=== PATIENT | female | born 1990 | race Caucasian/White ===

== ENCOUNTER 2019-01-02 13:39 | Outpatient (CLI) | payer MEDICAID, SELFPAY ==
[2019-01-02 13:50] VITALS: BP 120/71; PULSE 94; RESP 20; TEMP 36.9; O2SAT 95; BMI 26.2
[2019-01-02 14:00] VITALS: BMI 26.2
[2019-01-02 14:12] LABS: Microscopic, Urine URINE MICROSCOPIC (MICROSCOPIC)
[2019-01-02 14:19] LABS: Appearance,Urine CLEAR (Clear); Bilirubin,Urine Negative (Negative); Blood, Urine Negative (Negative); Color,Urine YELLOW (Yellow); Glucose,Urine (UA) Negative (Negative); Ketones,Urine Negative (Negative); Leukocyte Esterase,Urine Negative (Negative); Nitrate,Urine Negative (Negative); PH,Urine 8.5 (5.0-8.5); Protein,Urine Negative (Negative); Specific Gravity, Urine 1.015 (1.005-1.030); Urobilinogen,Urine 0.2 EU/dl (0.2)
[2019-01-02 14:32] LABS: Amphetamine/Metha Screen,Urine Negative ng/mL (<1000); Barbiturates Screen,Urine Negative ng/mL (<200); Benzodiazepines Screen,Urine Negative ng/mL (<200); Cannabinoid Screen,Urine Positive ng/mL (<50); Cocaine Screen,Urine Negative ng/mL (<300); Methadone Screen,Urine Negative ng/mL (<300); Opiate Screen,Urine Negative ng/mL (<300); Phencyclidine Screen,Urine Negative ng/mL (<25)
[2019-01-02 14:41] LABS: Bacteria,Urine Trace /lpf; WBC,Urine Occasional #/hpf (0-3)
[2019-01-02 15:12] LABS: Hematocrit 28.4 % (37.0-47.0); Hemoglobin 8.9 g/dL (12.2-16.2)
== END 2019-01-02 15:40 | disposition home or self-care (01) ==
LOC: OBOUT 13:45 → OB 13:45
PROVIDERS: PCP Family Medicine; Visit Provider Obstetrics & Gynecology
DX: O21.9 Vomiting of pregnancy, unspecified (principal); Z3A.30 30 weeks gestation of pregnancy
CPT/HCPCS: 36415; 59025; 80305; 81001; 85014; 85018; 96360; 96372

== ENCOUNTER 2021-01-19 03:43 | Emergency (ER) | payer MEDICAID, SELFPAY ==
[2021-01-19 04:00] VITALS: BP 130/60; PULSE 102; RESP 20; TEMP 36.8; O2SAT 100; BMI 22.8
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
[2021-01-19 04:20] LABS: Basophils # 0.1 K/mm3 (0-0.2); Basophils % 0.5 % (0.1-2.0); Eosinophils # 0.1 K/mm3 (0.0-0.4); Eosinophils % 0.4 % (0.1-12.0); Hematocrit 38.3 % (37.0-47.0); Hemoglobin 11.3 g/dL (12.2-16.2); Lymphocytes # 2.2 K/mm3 (0.7-4.5); Mean Corpuscular HGB Conc 29.6 g/dL (31.8-35.4); Mean Corpuscular Hemoglobin 22.4 pg (27.0-31.2); Mean Corpuscular Volume 75.8 fl (81-99); Mean Platelet Volume 7.4 fl (7.4-10.4); Monocytes # 0.8 K/mm3 (0.1-1.0); Monocytes % 6.4 % (1.7-9.3); Neutrophils # 8.9 K/mm3 (1.8-7.8); Neutrophils % 74.7 % (37.0-80.0); Platelet Count 453 K/mm3 (142-424); Red Blood Count 5.05 M/mm3 (4.20-5.40); Red Cell Distribution Width 17.1 % (11.5-17.5); White Blood Count 11.9 K/mm3 (4.8-10.8)
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
[2021-01-19 04:24] LABS: Alanine Aminotransferase 29 U/L (12-78); Albumin Level 4.9 g/dl (3.5-5.0); Albumin/Globulin Ratio 1.3 (1.1-1.8); Alkaline Phosphatase 108 U/L (38-126); Anion Gap 14.3 mEq/L (5-15); Aspartate Amino Transferase 54 U/L (14-36); Bilirubin,Total 0.2 mg/dl (0.2-1.3); Blood Urea Nitrogen 10 mg/dl (7-17); Calcium 9.5 mg/dl (8.4-10.2); Carbon Dioxide 26 mmol/L (22.0-30.0); Chloride 109 mmol/L (98-107); Creatinine Clearance Estimated 125 mL/min (50-200); Estimated Glomerular Filt Rate 119 ml/min (>60); GFR (African American) 144 ML/MIN (>60); Globulin 3.9 g/dL (1.3-3.2); Glucose 123 mg/dl (74-100); Potassium 4.3 mmoL/L (3.5-5.1); Sodium 145 mmol/L (136-145); Total Protein,Serum 8.8 g/dl (6.3-8.2)
[2021-01-19 04:29] LABS: C-Reactive Protein 2.2 mg/L (0-4)
[2021-01-19 04:30] LABS: HCG Qualitative, Serum Negative (Negative)
[2021-01-19 04:44] LABS: Erythrocyte Sedimentation Rate 13 mm/hr (0-20); Procalcitonin < 0.030 ng/mL (0.0-2.0)
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
[2021-01-19 05:45] VITALS: BP 122/77; PULSE 78; RESP 17; TEMP 36.8; O2SAT 99
== END 2021-01-19 05:49 | disposition home or self-care (01) ==
PROVIDERS: Emergency Provider Emergency Medicine; PCP Family Medicine
DX: S42.022A Displaced fracture of shaft of left clavicle, initial encounter for closed fracture (principal); S16.1XXA Strain of muscle, fascia and tendon at neck level, initial encounter; V49.3XXA Car occupant (driver) (passenger) injured in unspecified nontraffic accident, initial encounter; Y92.488 Other paved roadways as the place of occurrence of the external cause; Z88.0 Allergy status to penicillin
CPT/HCPCS: 70450; 71045; 71260; 72125; 72170; 73030; 80053; 84145; 84703; 85025; 85651; 86140; 96365; 96375; 99283; Q9967

== ENCOUNTER 2021-03-05 23:15 | Emergency (ER) | payer MEDICAID, SELFPAY ==
[2021-03-05 23:17] VITALS: BP 134/75; PULSE 98; RESP 16; TEMP 36.7; O2SAT 97; BMI 26.5
--- NOTE | 2021-03-05 23:59 | PC.NURSE ---
This Rn spoke with Nimco at [facility] for Vanc IV dosing of 1250mg once
--- NOTE | 2021-03-06 00:03 | HMH.EDGENADL ---
ED Disposition Clinical Impression: SIRS (systemic inflammatory response syndrome) Cellulitis Qualifiers: Site of cellulitis: other site Qualified Code(s): L03.818 - Cellulitis of other sites Disposition: Home, Self-Care Condition on Discharge: Good Instructions: DI for Cellulitis -- Adult Additional Instructions: use meds and see ortho on sunday for follow up Prescriptions: cephALEXin [cephALEXin 500mg capsule*] 500 mg PO TID #30 cap Transmission Status: Pending to [id number] clindamycin HCL [Clindamycin HCl] 300 mg PO TID #30 cap Transmission Status: Pending to [id number] Referrals: Thalia Dumont [Primary Care Provider] - - Critical Care Critical Care Time: No Attestation: On 03/05/21, the high probability of a clinically significant, sudden or life threatening deterioration of the following system(s) required my full and direct attention, intervention and personal management. The time I documented below is in addition to time spent performing reported procedures but includes the following listed in this critical care notation. Medical Decision Making - Medical Records Medical records reviewed: Yes: I reviewed the patient's medical records. - Stan Inquiry Pt receiving controlled substance: No Vital Signs: 03/05/21 23:17 Temperature 98.1 F Temperature Source Oral Pulse Rate [Right Radial] 98 H Respiratory Rate 16 Blood Pressure [Right Arm] 134/75 Blood Pressure Mean [Right Arm] 94 Blood Pressure Source [Right Arm] Automatic Cuff Blood Pressure Position [Right Arm] Sitting 02 Sat by Pulse Oximetry 97 Oxygen Delivery Method Room Air - Lab Data Lab results reviewed: Yes: I reviewed the patient's lab results. Lab Results 03/06/21 00:00: WBC 11.0 H, RBC 4.13 L, Hgb 9.4 L, Hct 29.9 L, MCV 72.4 L, MCH 22.7 L, MCHC 31.3 L, RDW 17.0, Plt Count 489 H, MPV 7.1 L, Neut % (Auto) 67.6, Lymph % (Auto) 23.2, [place] % (Auto) 6.6, Eos % (Auto) 2.0, Baso % (Auto) 0.5, Neut # (Auto) 7.4, Lymph # (Auto) 2.6, [place] # (Auto) 0.7, Eos # (Auto) 0.2, Baso # (Auto) 0.1, ESR 51 H 03/06/21 00:00: Sodium 137, Potassium 3.3 L, Chloride 105, Carbon Dioxide 24, Anion Gap 11.3, BUN 16, Creatinine 0.70, Estimated Creat Clear 124, Estimated GFR 100, Est GFR ( Amer) 121, Glucose 88, Calcium 10.0, Total Bilirubin < 0.1 L, AST 30, ALT 17, Alkaline Phosphatase 128 H, C-Reactive Protein 36.0 H, Total Protein 7.8, Albumin 4.4, Globulin 3.4 H, Albumin/Globulin Ratio 1.3, Procalcitonin 0.031 03/06/21 00:00: Lactate 1.1 03/06/21 00:00: Serum HCG, Qual Negative Result diagrams: 03/06/21 00:00 03/06/21 00:00 Orders (Tests/Meds): ED MEDICATIONS Generic Name Dose Route Start Last Admin Trade Name Freq PRN Reason Stop Dose Admin Vancomycin/PEG/NADA/Lysine/Water 1.25 gm in 250 mls @ 125 mls/hr 03/06/21 01:30 Vancomycin 1.25gm/250ml (Peg) Premix IV 03/06/21 03:29 ONCE ONE Discontinued Medications Generic Name Dose Route Start Last Admin Trade Name Freq PRN Reason Stop Dose Admin Iopamidol 75 ml 03/06/21 00:57 03/06/21 00:58 Iopamidol-370 (76%);100ml Bottle IV 03/06/21 00:58 75 ml ONCE ONE Administration Sodium Chloride 10 ml 03/06/21 00:57 03/06/21 00:58 Sodium Chloride 0.9% 10ml Syr (Rad Only) IV 03/06/21 00:58 10 ml ONCE ONE Administration Vancomycin HCl 1,250 mg 03/05/21 23:58 Vancomycin 1000mg Vial IV 03/05/21 23:59 ONCE ONE ORDERS Category Date Time Status Blood Culture Stat Micro 03/06/21 00:00 Received - CT Data CT Scan: Chest Time Received: 01:[address] Reviewed: Yes: I have viewed the radiologist's interpretation Preliminary Findings: Abnormal (see report ) Medical Decision Narrative: has prob early celluitis in area of orif lt clavicle - labs and exam stable - will place on abx and have pt see ortho sunday General Adult HPI - General Chief complaint: PAIN Stated complaint: Left shoulder surgery month ago red & swollen
--- NOTE | 2021-03-06 00:05 | CT_ITS ---
PROCEDURE INFORMATION: Exam: CT Chest With Contrast; Diagnostic Exam date and time: 03/06/2021 12:05 AM Age: 30 years old Clinical indication: Other: Swelling, reddness in left clavicle/shoulder area; Prior surgery; Surgery date: 1-6 months; Surgery type: Left clavicle FX pinning one month ago; Patient HX: Swelling and redness in incision site of left clavicle pinning; Additional info: Rule out abcess TECHNIQUE: Imaging protocol: Diagnostic computed tomography of the chest with contrast. Radiation optimization: All CT scans at this facility use at least one of these dose optimization techniques: automated exposure control; mA and/or kV adjustment per patient size (includes targeted exams where dose is matched to clinical indication); or iterative reconstruction. Contrast material: ISOVUE; Contrast volume: 75 ml; Contrast route: IV; COMPARISON: CT CHEST W CON 01/19/2021 4:52 AM FINDINGS: Lungs: No focal areas of consolidation. Pleural spaces: There are no pleural effusions. No pneumothorax. Heart: The heart is not enlarged. A moderate amount of pericardial fluid is present. Mediastinal space: A normal amount of residual thymus tissue is present in the anterior/superior mediastinum. Aorta: No aortic aneurysm. Lymph nodes: No pathologic adenopathy.Small lymph node measuring 7 mm in short axis is present in the left thoracic inlet. Diaphragm: A small hiatal hernia is present. Spleen: An accessory splenule is present. Bones/joints: Status post ORIF of the previously seen fracture involving the left mid clavicle. Alignment appears near anatomic. There is adjacent soft tissue density a.m. hazy fat stranding surrounding the postsurgical site which may reflect edema, inflammation or cellulitis. There is a small rounded area of intermediate density superior to the clavicle in the immediate subcutaneous tissues measuring approximately 13 by 13 mm seen on series 1001, image 32. Cannot exclude phlegmonous change or small hematoma. There is no evidence of acute fracture. There is more or shaped thoracic scoliosis. Soft tissues: No subcutaneous emphysema. Other findings: Dental amalgam artifact limits evaluation of adjacent structures. The remainder of the visualized upper abdominal structures are normal. IMPRESSION: 1. Status post ORIF of the previously seen fracture involving the left mid clavicle with near anatomic alignment. Adjacent intermediate densities and hazy fat stranding surrounding the postsurgical site may reflect edema, inflammation or cellulitis. Small rounded area of intermediate density superior to the clavicle in the immediate subcutaneous tissues measuring approximately 13 by 13 mm could reflect small hematoma and cannot exclude phlegmonous change. 2. Small to moderate hiatal hernia.
[2021-03-06 00:22] LABS: Basophils # 0.1 K/mm3 (0-0.2); Basophils % 0.5 % (0.1-2.0); Eosinophils # 0.2 K/mm3 (0.0-0.4); Hemoglobin 9.4 g/dL (12.2-16.2); Lymphocytes # 2.6 K/mm3 (0.7-4.5); Lymphocytes % 23.2 % (10-50); Mean Corpuscular HGB Conc 31.3 g/dL (31.8-35.4); Mean Corpuscular Hemoglobin 22.7 pg (27.0-31.2); Mean Corpuscular Volume 72.4 fl (81-99); Mean Platelet Volume 7.1 fl (7.4-10.4); Monocytes # 0.7 K/mm3 (0.1-1.0); Monocytes % 6.6 % (1.7-9.3); Neutrophils # 7.4 K/mm3 (1.8-7.8); Neutrophils % 67.6 % (37.0-80.0); Platelet Count 489 K/mm3 (142-424); Red Blood Count 4.13 M/mm3 (4.20-5.40)
[2021-03-06 00:31] LABS: Hematocrit 29.9 % (37.0-47.0)
[2021-03-06 00:32] LABS: Alanine Aminotransferase 17 U/L (12-78); Albumin Level 4.4 g/dl (3.5-5.0); Albumin/Globulin Ratio 1.3 (1.1-1.8); Alkaline Phosphatase 128 U/L (38-126); Anion Gap 11.3 mEq/L (5-15); Aspartate Amino Transferase 30 U/L (14-36); Bilirubin,Total < 0.1 mg/dl (0.2-1.3); Blood Urea Nitrogen 16 mg/dl (7-17); Carbon Dioxide 24 mmol/L (22.0-30.0); Chloride 105 mmol/L (98-107); Creatinine Clearance Estimated 124 mL/min (50-200); Estimated Glomerular Filt Rate 100 ml/min (>60); GFR (African American) 121 ML/MIN (>60); Globulin 3.4 g/dL (1.3-3.2); Glucose 88 mg/dl (74-100); Lactic Acid 1.1 mmol/L (0.7-2.1); Potassium 3.3 mmoL/L (3.5-5.1); Sodium 137 mmol/L (136-145); Total Protein,Serum 7.8 g/dl (6.3-8.2)
[2021-03-06 00:40] LABS: HCG Qualitative, Serum Negative (Negative)
[2021-03-06 00:46] LABS: Erythrocyte Sedimentation Rate 51 mm/hr (0-20)
[2021-03-06 00:51] LABS: Procalcitonin 0.031 ng/mL (0.0-2.0)
[2021-03-06 00:56] VITALS: BP 123/72; PULSE 80; O2SAT 99
[2021-03-06 01:00] VITALS: BP 121/65; PULSE 80; O2SAT 98
[2021-03-06 01:30] VITALS: BP 124/71; PULSE 70; O2SAT 99
[2021-03-06 03:07] VITALS: BP 120/80; PULSE 72; RESP 16; TEMP 36.7; O2SAT 98
== END 2021-03-06 03:11 | disposition home or self-care (01) ==
PROVIDERS: Emergency Provider Emergency Medicine; PCP Family Medicine
DX: L03.114 Cellulitis of left upper limb (principal); R65.10 Systemic inflammatory response syndrome (SIRS) of non-infectious origin without acute organ dysfunction; F17.210 Nicotine dependence, cigarettes, uncomplicated; Z88.0 Allergy status to penicillin
CPT/HCPCS: 71260; 80053; 83605; 84145; 84703; 85025; 85651; 86140; 87040; 96365; 96375; 99283; Q9967

== ENCOUNTER 2024-04-08 10:32 | Emergency (ER) | payer MEDICAID, SELFPAY ==
[2024-04-08] VITALS (21 sets, daily range): BP systolic 114–154; BP diastolic 61–95; PULSE 69–89; RESP 16–18; TEMP 36.7–37.7; O2SAT 98–100; BMI 30.2
[2024-04-08] MEDS: ONDANSETRON 4MG/2ML VIAL 4 MG IV (11:12)
[2024-04-08] MEDS: ACETAMINOPHEN 1,000MG/100ML VIAL 1000 MG IV (11:12)
[2024-04-08] MEDS: LACTATED RINGERS 1000ML 1,000 ML 999 ML IV (11:12)
[2024-04-08 11:20] LABS: Microscopic, Urine URINE MICROSCOPIC (MICROSCOPIC)
--- NOTE | 2024-04-08 11:32 | HMH.EDGENADL ---
Discharge Plan Disposition Patient Disposition: Xfer Short-Term Hosp Chief Complaint: Nausea/Vomiting/Diarrhea Prescriptions Prescriptions: No Action cephalexin 500 MG capsule 500 mg PO TID Qty: 30 0RF clindamycin HCl 300 MG capsule 300 mg PO TID Qty: 30 0RF Referrals Follow up/Referrals: Thalia Dumont [Primary Care Provider] - See instructions Clinical Impressions Clinical Impression: IVC thrombosis, Right ventricular thrombus, Iron deficiency anemia Instructions Patient Instructions: DI for Diarrhea and Traveler's Diarrhea -- Adult, DI for Diarrhea and Traveler's Diarrhea -- Child, DI for Nausea -- Adult, DI for Nausea -- Child Print Language Print Language: Gabonese Discharge ED Provider: Gregorio Orourke General Adult HPI General Chief complaint: Nausea/Vomiting/Diarrhea Stated complaint: v/d 3 days sharp abd pain Time Seen by Provider: 04/08/24 10:58 Mode of Arrival: Ambulatory Source of Information: Patient Limitations: No Limitations Description of Symptoms (Recalled from ER Triage Doc. by RN): Pt presents with c/o generalized body aches, n/v/d. History of Present Illness HPI narrative: Please note that above description of symptoms, in this electronic medical record under categorization of recalled from ER triage doctor by RN are reflective of an initial nursing assessment, however, is not reflective of my full history and physical exam that was personally taken and clarified. Consequentially, this preceding description of symptoms, which may include the patient's categorized chief complaint in the EMR, do not reflect my personal clinical impression, and the ultimate description of history of present illness and patient stated complaints should be deferred to this section of the note. Unless stated otherwise or congruent with this section of the note, additional signs, symptoms, or incongruence should be interpreted as inaccurate with my clinical impression. Related Data Previous Rx's ?Medication ?Instructions ?Recorded cephalexin 500 mg capsule 500 mg PO TID #30 caps 03/06/21 clindamycin HCl 300 mg capsule 300 mg PO TID #30 caps 03/06/21 Allergies Allergy/AdvReac Type Severity Reaction Status Date / Time Penicillins Allergy Intermediate Verified 04/04/19 22:24 [facility] Disclaimer: The information contained in this section may have been updated after the patient was seen, as this information can be updated by other users. Social History Smoking Status: Never smoker alcohol intake: never current occupational status: employed Travel in the last 8 weeks: None Have you lived/traveled outside [place] in past 30 days?: No Contact w/someone who lives/traveled outside US past 30 days?: No Exposure to someone with infectious disease in past 14 days?: No Do you have a fever (greater than 100.4 F or 38 C)?: No Have you tested positive for COVID-19: No Exposed to someone with COVID-19 in past 14 days?: No Do you have a sore throat?: No Do you have a cough?: No Do you have any weakness?: Yes Do you have any diarrhea?: Yes Are you experiencing any unusual bleeding?: No Do you have any muscle aches/pain?: No Do you have any abdominal pain?: Yes Are you experiencing loss of taste or smell?: No Other Medical History Have you received the Flu Vaccine for this season: No Have you received the Pneumonia Vaccine: No ROS Obtained: Yes All systems reviewed & no additional complaints except as documented Physical Exam General General appearance: alert Head Head exam: atraumatic and normocephalic Eye Eye exam: Present normal appearance, PERRL and EOMI Neck Neck exam: Present normal inspection, full ROM and trachea midline Respiratory Respiratory exam: Absent respiratory distress, wheezes, stridor, accessory muscle use or prolonged expiratory phase Cardiovascular Cardiovascular exam: Present other (Pulses equal symmetric in upper and lower extremities) Abdominal Exam Abdominal exam: Present soft; Absent distention, tenderness, guarding, rebound or pulsatile mass Extremities Exam Extremities exam: Absent edema Neurological Exam Neurological exam: Present alert, oriented X3 and CN II-XII intact; Absent motor sensory deficit Skin Skin exam: Present warm, dry and pallor; Absent diaphoresis or erythema Medical Decision Making Medical Records Medical records reviewed: Yes I reviewed the patient's medical records. Screening: Per USPSTF and CDC recommendations, given the prevalence of disease in our region, it is our hospital?s policy to screen for HIV and viral Hepatitis for all patients aged 18 and over and those with ongoing risk factors. Stan Inquiry Pt receiving controlled substance: No Stan was queried for this patient: No Vital Signs: 04/08/24 10:58 04/08/24 12:30 04/08/24 13:34 Temperature 98.1 F Temperature Source Oral Pulse Rate 76 80 Pulse Rate [Right Radial] 83 Respiratory Rate 18 16 Blood Pressure 131/90 154/67 H Blood Pressure [Right Arm] 126/61 Blood Pressure Mean [Right Arm] 82 Blood Pressure Source [Right Arm] Automatic Cuff Blood Pressure Position [Right Arm] Sitting 02 Sat by Pulse Oximetry 100 100 100 Oxygen Delivery Method Room Air Room Air Room Air Lab Data Lab Results 04/08/24 11:13: WBC 7.5, RBC 4.90, Hgb 6.7 L*, Hct 26.1 L, MCV 53.3 L, MCH 13.7 L*, MCHC 25.7 L, RDW 24.7 H, Plt Count 417, MPV TNP, Neut % (Auto) 71.2, Lymph % (Auto) 17.7, [place] % (Auto) 7.4, Eos % (Auto) 0.9, Baso % (Auto) 0.9, Neut # (Auto) 5.3, Lymph # (Auto) 1.3, [place] # (Auto) 0.6, Eos # (Auto) 0.1, Baso # (Auto) 0.1, PT 11.0, INR 0.98, APTT 27.1, Sodium 135 L, Potassium 3.4 L, Chloride 105, Carbon Dioxide 18 L, Anion Gap 15.4 H, BUN 15, Creatinine 0.70, Estimated Creat Clear 138, Estimated GFR 98, Est GFR ( Amer) 118, Glucose 115 H, Lactate 1.2, Calcium 9.7, Magnesium 1.8, Iron 23 L, TIBC 536 H, Iron Saturation 4.51154 L, Total Bilirubin 0.8, AST 57 H, ALT 35, Alkaline Phosphatase 135 H, Total Protein 8.0, Albumin 4.6, Globulin 3.4 H, Albumin/Globulin Ratio 1.4, HCG, Quant < 2, Urine Color Yellow, Urine Appearance Clear, Urine pH 6.0, Ur Specific [place] 1.020, Urine Protein 1+ A, Urine Glucose (UA) Negative, Urine Ketones Negative, Urine Blood Negative, Urine Nitrate Negative, Urine Bilirubin Negative, Urine Urobilinogen 0.2, Ur Leukocyte Esterase Negative, Urine RBC Occasional, Urine WBC 3-5, Ur Squamous Epith Cells 10-20, Urine Bacteria 1+ 04/08/24 11:52: Hct 21.4 L 04/08/24 12:15: Blood Type O Positive, Antibody Screen Negative 04/08/24 11:52 04/08/24 11:13 Orders (Tests/Meds): ED MEDICATIONS Generic Name Dose Route Start Last Admin Trade Name Freabdiaziz PRN Reason Stop Dose Admin Sodium Chloride 250 mls @ 25 mls/hr 04/08/24 13:30 Sod Chlor 0.9% 250ml Bag IV 04/09/24 13:29 .Q10H FELIPE Discontinued Medications Generic Name Dose Route Start Last Admin Trade Name Jazzy PRN Reason Stop Dose Admin Acetaminophen 1,000 mg 04/08/24 10:55 04/08/24 11:12 Acetaminophen 1,000mg/100ml Vial IV 04/08/24 10:56 1,000 mg ONCE ONE Administration Heparin Sodium (Porcine) 7,500 unit 04/08/24 13:35 Heparin Sodium 5,000 Unit/Ml Vial 100 unit/kg (7500 unit) 04/08/24 13:36 IV ONCE ONE Lactated Ringer's 1,000 mls @ 999 mls/hr 04/08/24 10:55 04/08/24 11:12 Lactated Ringer's 1000 Ml Bag IV 04/08/24 11:55 999 mls/hr .Q1H1M ONE Administration Iopamidol 75 ml 04/08/24 12:32 04/08/24 12:32 Iopamidol-370 (76%);100ml Bottle IV 04/08/24 12:33 75 ml ONCE ONE Administration Ondansetron HCl 4 mg 04/08/24 10:55 04/08/24 11:12 Ondansetron 4mg/2ml Vial IV 04/08/24 10:56 4 mg ONCE ONE Administration Sodium Chloride 10 ml 04/08/24 12:32 04/08/24 12:32 Sodium Chloride 0.9% 10ml Syr (Rad Only) IV 04/08/24 12:33 10 ml ONCE ONE Administration Sodium Chloride 50 ml 04/08/24 12:32 04/08/24 12:33 0.9 % Sodium Chloride 50 Ml Vial IV 04/08/24 12:33 50 ml ONCE ONE Administration ORDERS Category Date Time Status Transfuse RBC's [Red Blood Cells] Stat [facility] 04/08/24 12:15 Results Type and Screen Stat K 04/08/24 12:[address] angio abdomen pelvis Stat Cat Scan 04/08/24 12:[address] angio chest - dissection Stat Cat Scan 04/08/24 12:02 Taken POCUS Point of Care (ER Only) Stat Exams 04/08/24 13:18 Ordered Complete Blood Count Auto Diff Stat Lab 04/08/24 11:13 Completed Comprehensive Metabolic Panel Stat Lab 04/08/24 11:13 Completed Factor V Activity Stat Lab 04/08/24 13:51 Ordered Factor V Leiden Mutation Stat Lab 04/08/24 13:51 Ordered HCG,Quantitative Stat Lab 04/08/24 11:13 Completed Hemoglobin and Hematocrit Stat Lab 04/08/24 11:52 Results Heparin drip PTT [PTT Heparin (inpatient only)] Stat Lab 04/08/24 11:13 Received Iron and TIBC Stat Lab 04/08/24 11:13 Completed Lactic Acid Stat Lab 04/08/24 11:13 Completed Magnesium Stat Lab 04/08/24 11:13 Completed PT INR [Prothrombin Time INR] Stat Lab 04/08/24 11:13 Completed PTT [Activated Partial Thrombo Time] Stat Lab 04/08/24 11:13 Completed Protein S Panel Stat Lab 04/08/24 13:51 Ordered Urinalysis and Microscopic Stat Lab 04/08/24 11:13 Completed von Willebrand Factor (vWF) Ag Stat Lab 04/08/24 13:51 Ordered Medical Decision Narrative: 33-year-old female no comorbidities otherwise medically healthy presenting with vomiting, diarrhea, general malaise and abdominal cramping. She states this has been going on for a couple of days. Unable to keep many things down. Nonbloody vomiting/nonbloody vomiting. Nonbloody diarrhea. Denies any dark tarry stools. Came in for further evaluation given she feels she is unable to keep up with the dehydration. Abdominal pain is diffuse, crampy, does not radiate. No urinary symptoms. History was obtained via conversation with patient. On arrival, patient hemodynamically stable, alert, oriented x4, appropriate, GCS 15, moving all extremities spontaneously, pupils equal and reactive to light. Full physical exam performed and significant for pale appearing female who is in no acute distress. Speaking full sentences, very clinically well-appearing otherwise. Abdomen is soft, nontender, nondistended. Lungs are clear, cardiac exam without murmurs gallops or rubs. Differential includes viral syndrome, PUD, gastritis, PUD, gastritis, enteritis, gastroenteritis, pancreatitis, SBO, colitis, diverticulitis, nephrolithiasis, UTI, , cholecystitis, choledocholithiasis, appendicitis, hepatitis, torsion, aortic pathology, mesenteric ischemia among others Patient placed on continuous cardiac monitoring and continuous pulse ox with initial blood pressure 126/61, heart rate 83, saturation 100% on room air. Independent interpretation of EKG shows sinus rhythm [address] or T wave changes concern for acute ischemia. FL interval 183, QRS 90, QTc 440. Patient does have leftward leaning axis. Patient was given fluid bolus and Zofran initially for symptomatic management and correction of underlying abnormalities. Workup independently interpreted and significant for CBC concerning for hemoglobin of 6.7. Repeat hemoglobin came back at 6.0 on straight stick. Iron studies with iron level low at 23, TIBC at 536 high, iron saturation low at 4%. Platelets normal at 417. Patient's coags with INR 0.98 and PTT 27.1. Mildly hyponatremic 135/hypokalemic 3.4. Kidney function normal. LFTs mildly, but nonactionable. hCG negative. Urinalysis with proteinuria but no evidence of infection. Patient was typed and screened she is O+ without antibodies. Factor V and other hypercoagulable labs were sent. I did a bedside [id number] ultrasound which was incredibly concerning for large clot burden and patient's right heart extending from right atrium into right ventricle. CT angiogram of the chest abdomen and pelvis was ordered and patient has near complete thrombus of IVC, hepatic vein with thrombus extending into right atrium and right ventricle on independent interpretation. No evidence of PE or right heart strain. See radiology read for full review of final results. Cardiology here was contacted and case was discussed at length, came to visit patient at bedside on consultation. Recommended transfer to higher level of care for complex thrombus and further malignancy workup. I called [facility] and consulted with hospital medicine as well as cardiothoracic surgery. Cardiothoracic surgery recommended transfusion here and holding anticoagulation like heparin bolus and drip until transferred and reevaluated at . O+ blood transfused. Because patient high risk for clinical decompensation if discharged, deemed appropriate for transfer and inpatient admission. Results were relayed to patient who voiced understanding and patient was agreeable to transfer, inpatient admission, and management. Patient was graciously accepted and transferred to [facility] for further definitive management, under Dr. Olea. Senior Health Physics Technician disclaimer Much of this encounter note is an electronic steam distribution supervisor spoken language to printed text. Electronic steam distribution supervisor of the spoken language may permit errors. Although I have reviewed the note, some errors may still exist. Procedures Limited Ultrasound Indication:: Limited cardiac ultrasound Indication: Anemia, shortness of breath, abdominal cramping Identified cardiac views: -Cardiac parasternal long axis -Cardiac parasternal short axis -Cardiac apical four-chamber Findings: -Cardiac activity present -Gross wall motion normal -Pericardial effusion absent -Right heart strain absent -Large clot burden extending from right atrium and right ventricle Impression: -Large clot extending from right atrium and right ventricle without complete occlusion of pulmonary outflow tract Images were saved to permanent archive The study was technically adequate CPT: 12154 This study was performed by me, and I personally interpreted all images/videos. Based on my clinical judgement, these images were adequate and did not necessitate further imaging Critical Care Critical Care Time Critical Care Time: Yes (heme, CV) Attestation: On 04/08/24, the high probability of a clinically significant, sudden or life threatening deterioration of the following system(s) required my full and direct attention, intervention and personal management. The time I documented below is in addition to time spent performing reported procedures but includes the following listed in this critical care notation. Total Time Total Critical Care Time: 75
[2024-04-08 11:35] LABS: Activated Partial Thrombo Time 27.1 seconds (22.8-30.6); INR 0.98 (0.9-1.1)
[2024-04-08 11:36] LABS: Basophils # 0.1 K/mm3 (0-0.2); Basophils % 0.9 % (0.1-2.0); Eosinophils # 0.1 K/mm3 (0.0-0.4); Eosinophils % 0.9 % (0.1-12.0); Hematocrit 26.1 % (37.0-47.0); Lymphocytes # 1.3 K/mm3 (0.7-4.5); Lymphocytes % 17.7 % (10-50); Mean Corpuscular HGB Conc 25.7 g/dL (31.8-35.4); Mean Corpuscular Volume 53.3 fl (81-99); Monocytes # 0.6 K/mm3 (0.1-1.0); Monocytes % 7.4 % (1.7-9.3); Neutrophils # 5.3 K/mm3 (1.8-7.8); Neutrophils % 71.2 % (37.0-80.0); Platelet Count 417 K/mm3 (142-424); Red Cell Distribution Width 24.7 % (11.5-17.5); White Blood Count 7.5 K/mm3 (4.8-10.8)
[2024-04-08 11:40] LABS: Appearance,Urine CLEAR (Clear); Blood, Urine Negative (Negative); Color,Urine YELLOW (Yellow); Glucose,Urine (UA) Negative (Negative); Ketones,Urine Negative (Negative); Leukocyte Esterase,Urine Negative (Negative); Nitrate,Urine Negative (Negative); Protein,Urine 1+ (Negative); Urobilinogen,Urine 0.2 EU/dl (0.2)
[2024-04-08 11:41] LABS: Hemoglobin 6.7 g/dL (12.2-16.2); Mean Corpuscular Hemoglobin 13.7 pg (27.0-31.2)
--- NOTE | 2024-04-08 11:42 | PC.NURSE ---
Dr. Orourke notified of hgb of 6.7.
[2024-04-08 11:57] LABS: Bilirubin,Urine Negative (Negative)
[2024-04-08 11:58] LABS: Hematocrit 21.4 % (37.0-47.0)
[2024-04-08 11:58] LABS: Lactic Acid 1.2 mmol/L (0.7-2.1)
[2024-04-08 11:59] LABS: Alanine Aminotransferase 35 U/L (12-78); Albumin Level 4.6 g/dl (3.5-5.0); Albumin/Globulin Ratio 1.4 (1.1-1.8); Alkaline Phosphatase 135 U/L (38-126); Anion Gap 15.4 mEq/L (5-15); Aspartate Amino Transferase 57 U/L (14-36); Bacteria,Urine 1+ /lpf; Bilirubin,Total 0.8 mg/dl (0.2-1.3); Blood Urea Nitrogen 15 mg/dl (7-17); Calcium 9.7 mg/dl (8.4-10.2); Carbon Dioxide 18 mmol/L (22.0-30.0); Chloride 105 mmol/L (98-107); Creatinine Clearance Estimated 138 mL/min (50-200); Estimated Glomerular Filt Rate 98 ml/min (>60); GFR (African American) 118 ML/MIN (>60); Globulin 3.4 g/dL (1.3-3.2); Glucose 115 mg/dl (74-100); Magnesium 1.8 mg/dl (1.6-2.3); Potassium 3.4 mmoL/L (3.5-5.1); RBC,Urine Occasional #/hpf (0-3); Sodium 135 mmol/L (136-145)
--- NOTE | 2024-04-08 12:02 | CT_ITS ---
FINAL REPORT TECHNIQUE: Pre-and postcontrast images of the abdomen and pelvis were performed by computed tomography. Extensive 3-D reconstruction images were performed. A CTA was performed. This study was performed with techniques to keep radiation doses as low as reasonably achievable (ALARA). Individualized dose reduction techniques using automated exposure control or adjustment of mA and/or kV according to the patient's size were employed. CLINICAL HISTORY: acute blood loss anemia, GIB COMPARISON: None FINDINGS: ABDOMEN AND PELVIS: The lung bases are clear. Precontrast images demonstrate no evidence of nephrolithiasis. No adrenal masses are identified. The spleen and pancreas are unremarkable. There is a filling defect in the intrahepatic portion of the IVC, worrisome for thrombosis, which appears to extend into the right atrium as well. This was also described on the CTA of the chest from the same date. There are 2 small hypervascular foci noted in the liver, that may represent small hemangiomas. No abdominal mass or free fluid is identified. There is a left adnexal 3.5 cm hypoechoic focus that likely represents a left ovarian cyst. CTA: The abdominal aorta is proper caliber. The SMA, celiac axis, and STEPHANIE are patent. Incidental note is made of likely an independent origin of the left gastric artery from the abdominal aorta. There is no significant stenosis or calcification. The renal arteries are patent bilaterally. IMPRESSION: Filling defect in the intrahepatic portion of the inferior vena cava, which appears to extend into the right atrium as well. This likely represents thrombus, as was described on the CTA of the chest on the same date. 2 small hypervascular foci noted in the liver, likely small hemangiomas. Reviewed, Interpreted and Dictated by Ashok Smith MD Transcribed by Haleigh Johnston Authenticated and [facility]
--- NOTE | 2024-04-08 12:02 | CT_ITS ---
FINAL REPORT TECHNIQUE: The patient was injected with IV contrast. Axial images were obtained through the chest in a PE protocol. 3-D reconstruction images were also performed. Individualized dose reduction techniques using automated exposure control or adjustment of the MA and/or KV according to patient's size were employed. CLINICAL HISTORY: acute blood loss anemia, GIB COMPARISON: None FINDINGS: Mediastinal vasculature is adequately opacified. No pulmonary artery filling defects are identified to suggest PE. However, there is a large defect noted in the right atrium that appears to extend from the inferior vena cava into the right atrium, seen on axial images #75 through 83, and on sagittal image #107 of series 1004. On the sagittal images, this presumed thrombus measures 9.5 cm in the craniocaudal dimension. There is no aortic dissection. There is no axillary adenopathy. There is no hilar or mediastinal adenopathy. The heart size is normal. There is no pericardial or pleural effusion. A moderate-sized hiatal hernia is present. Limited images of the upper abdomen are unremarkable. No suspicious infiltrate or nodule is identified. IMPRESSION: Large defect in the right atrium that appears to extend from the inferior vena cava into the right atrium as described above. This presumed thrombus puts the patient at risk for life-threatening pulmonary emboli. Correlation with echocardiography is recommended for further evaluation. No evidence of pulmonary emboli. Reviewed, Interpreted and Dictated by Ashok Smith MD Transcribed by Haleigh Johnston Authenticated and [facility]
--- NOTE | 2024-04-08 12:06 | PC.NURSE ---
Pt moved to room 1. Placed on monitor. Preparing for second IV insertion. Pt denies any abnormal bleeding.
[2024-04-08 12:16] LABS: HCG,Quantitative < 2 mIU/ml (0-5.42)
[2024-04-08] MEDS: IOPAMIDOL-370 (76%);100ML BOTTLE 75 ML IV (12:32)
[2024-04-08] MEDS: SODIUM CHLORIDE 0.9% 10ML SYR (RAD ONLY) 10 ML IV (12:32)
[2024-04-08] MEDS: 0.9 % SODIUM CHLORIDE 50 ML VIAL IV (12:33)
--- NOTE | 2024-04-08 12:47 | PC.NURSE ---
Patient up to restroom at this time.
--- NOTE | 2024-04-08 13:12 | PC.NURSE ---
DR SMITH PAGED
--- NOTE | 2024-04-08 13:19 | PC.NURSE ---
DR SHARIF SPEAKING WITH DR SMITH
--- NOTE | 2024-04-08 13:29 | PC.NURSE ---
PT changed into gown. belongings placed into bag.
[2024-04-08 13:31] LABS: Iron 23 ug/dL (37-170)
--- NOTE | 2024-04-08 13:36 | ECG_ITS ---
APPROVED REPORT Exam: Resting ECG HR:83 bpm ECG Measurements Heart Rate 83 AXES AR 183 P -17 QRSd 90 QRS -20 QT 400 T 7 QTc 440 Conclusion SINUS RHYTHM POSSIBLE LEFT ATRIAL ENLARGEMENT [-0.1mV P-WAVE IN V1/V2] BORDERLINE ECG UNCONFIRMED REPORT Electronically signed by : VICENTE CHIRINOS, 04/11/2024 05:47:59
[2024-04-08 13:40] LABS: Total Iron Binding Capacity 536 ug/dL (265-497)
--- NOTE | 2024-04-08 13:48 | PC.NURSE ---
[employer]IR [employer] NOTIFIED FOR POSSIBLE FLIGHT, WILL CALL BACK
[2024-04-08 14:42] LABS: Hemoglobin 5.5 g/dL (12.2-16.2)
--- NOTE | 2024-04-08 14:46 | PC.NURSE ---
Report given to flight crew. Pending bed assignment
--- NOTE | 2024-04-08 15:00 | EXP.CARD.CON ---
History of Present Illness History of Present Illness Consult date: 04/08/24 Requesting physician: Gregorio Orourke Chief complaint: nausea and vomiting History of present illness: This is a 33-year-old female who presented to the emergency department with complaints of nausea, vomiting and diarrhea. The patient states that her symptoms started on Sunday and progressively worsened. She states that she started to have some chills and bodyaches as well. The patient states that she was unable to keep any food down since Sunday because of the nausea and vomiting. She thought she had norovirus and came into the emergency department to get IV fluids to hopefully start feeling better. She denies any chest pain. She denies any shortness of breath or edema. She denies any fevers, PND or orthopnea. The patient denies any blood with vomiting. She denies having any black tarry or bloody stools. Patient had CTA of the abdomen and she was found to have a thrombus extending from her right renal vein, upper IVC, and into her right atrium and right ventricle. Cardiology was consulted due to this thrombus. [facility] Disclaimer: The information contained in this section may have been updated after the patient was seen, as this information can be updated by other users. Medical History (Updated 04/08/24 @ 15:06 by Shana Farah APRN) IVC thrombosis Right ventricular thrombus Iron deficiency anemia Diarrhea Nausea & vomiting Social History Smoking Status: Never smoker alcohol intake: never current occupational status: employed Travel in the last 8 weeks: None Have you lived/traveled outside [place] in past 30 days?: No Contact w/someone who lives/traveled outside [place] past 30 days?: No Exposure to someone with infectious disease in past 14 days?: No Do you have a fever (greater than 100.4 F or 38 C)?: No Have you tested positive for COVID-19: No Exposed to someone with COVID-19 in past 14 days?: No Do you have a sore throat?: No Do you have a cough?: No Do you have any weakness?: Yes Do you have any diarrhea?: Yes Are you experiencing any unusual bleeding?: No Do you have any muscle aches/pain?: No Do you have any abdominal pain?: Yes Are you experiencing loss of taste or smell?: No Review of Systems Review of Systems Review of systems:: pertinent systems reviewed and negative unless documented below Constitutional Constitutional: Reports system reviewed and no additional complaints, except as documented, Reports body ache(s), Reports chills, Reports fatigue and Reports lethargy Eyes Eyes: Reports system reviewed and no additional complaints, except as documented ENT Ears, Nose, Mouth, and Throat: Reports system reviewed and no additional complaints, except as documented *Cardiovascular Cardiovascular: Reports system reviewed and no additional complaints, except as documented, Denies chest pain and Denies dyspnea *Respiratory Respiratory: Reports system reviewed and no additional complaints, except as documented and Denies dyspnea *Gastrointestinal Gastrointestinal: Reports system reviewed and no additional complaints, except as documented, Denies melena, Reports nausea and Reports vomiting *Genitourinary Genitourinary: Reports system reviewed and no additional complaints, except as documented *Musculoskeletal Musculoskeletal: Reports system reviewed and no additional complaints, except as documented Integumentary/Breasts Skin/Breast: Reports system reviewed and no additional complaints, except as documented *Neurologic Neurologic: Reports system reviewed and no additional complaints, except as documented Psychiatric Psychiatric: Reports system reviewed and no additional complaints, except as documented Endocrine Endocrine: Reports system reviewed and no additional complaints, except as documented and Reports fatigue Hematologic/Lymphatic Hematologic/Lymphatic: Reports system reviewed and no additional complaints, except as documented Allergic/Immunologic Allergic/Immunologic: Reports system reviewed and no additional complaints, except as documented Exam Data for Last 24 hours Vital signs and Labs for Last 24 Hours: Temp Pulse Resp BP Pulse Ox O2 Del Method 98.1 F 80 16 154/67 H 100 Room Air 04/08/24 10:58 04/08/24 13:34 04/08/24 12:30 04/08/24 13:34 04/08/24 13:34 04/08/24 13:34 Laboratory Results - last 24 hr 04/08/24 11:13: WBC 7.5, RBC 4.90, Hgb 6.7 L*, Hct 26.1 L, MCV 53.3 L, MCH 13.7 L*, MCHC 25.7 L, RDW 24.7 H, Plt Count 417, MPV TNP, Neut % (Auto) 71.2, Lymph % (Auto) 17.7, Lucas % (Auto) 7.4, Eos % (Auto) 0.9, Baso % (Auto) 0.9, Neut # (Auto) 5.3, Lymph # (Auto) 1.3, Lucas # (Auto) 0.6, Eos # (Auto) 0.1, Baso # (Auto) 0.1, PT 11.0, INR 0.98, APTT 27.1 04/08/24 11:13: APTT 26.0 L, Sodium 135 L, Potassium 3.4 L, Chloride 105, Carbon Dioxide 18 L, Anion Gap 15.4 H, BUN 15, Creatinine 0.70, Estimated Creat Clear 138, Estimated GFR 98, Est GFR ( Amer) 118, Glucose 115 H, Lactate 1.2, Calcium 9.7, Magnesium 1.8, Iron 23 L, TIBC 536 H, Iron Saturation 4.73406 L, Total Bilirubin 0.8, AST 57 H, ALT 35, Alkaline Phosphatase 135 H, Total Protein 8.0, Albumin 4.6, Globulin 3.4 H, Albumin/Globulin Ratio 1.4, HCG, Quant < 2, Urine Color Yellow, Urine Appearance Clear, Urine pH 6.0, Ur Specific [place] 1.020, Urine Protein 1+ A, Urine Glucose (UA) Negative, Urine Ketones Negative, Urine Blood Negative, Urine Nitrate Negative, Urine Bilirubin Negative, Urine Urobilinogen 0.2, Ur Leukocyte Esterase Negative, Urine RBC Occasional, Urine WBC 3-5, Ur Squamous Epith Cells 10-20, Urine Bacteria 1+ 04/08/24 11:52: Hgb 5.5 L*, Hct 21.4 L 04/08/24 12:15: Blood Type O Positive, Antibody Screen Negative, Crossmatch (AHG) See Detail 04/08/24 14:42: Blood Type Confirm O Positive I & O for Last 24 hours: Intake & Output 04/05/24 04/06/24 04/07/24 04/08/24 23:59 23:59 23:59 23:59 Weight 165 lb Constitutional Constitutional: no acute distress and average body habitus *Routine HEENT Exam Head: Present normocephalic and atraumatic ENT: Present mucous membranes moist *Routine Neck Exam Neck: Present supple, full ROM and normal carotid upstroke; Absent JVD, carotid bruit or lymphadenopathy *Routine Respiratory Exam Respiratory: Present CTA bilaterally, normal respiratory effort, able to speak in complete sentences and symmetric chest movement *Routine Cardiovascular Exam Cardiovascular: Present RRR, Normal S1 and Normal S2; Absent murmur or gallop *Routine Abdominal Exam Abdominal: Present soft and normoactive bowel sounds; Absent tenderness, distended or organomegaly *Routine Extremities Exam Extremities: Present full ROM, pulses intact and normal capillary refill; Absent cyanosis, clubbing or edema *Routine Skin Exam Skin: Present intact and warm; Absent erythema *Routine Neurological Exam Neurological: Present alert, oriented X3 and CN II-XII intact; Absent sensory deficit or motor deficit Routine Psychiatric Exam Psychiatric: Present normal affect Meds Home Medications and Allergies Home Medications ?Medication ?Instructions ?Recorded ?Confirmed ?Type cephalexin 500 mg capsule 500 mg PO TID #30 caps 03/06/21 Rx clindamycin HCl 300 mg capsule 300 mg PO TID #30 caps 03/06/21 Rx New Prescriptions to Start Prescriptions: Allergies Allergy/AdvReac Type Severity Reaction Status Date / Time Penicillins Allergy Intermediate Verified 04/04/19 22:24 Assessment and Plan *Assessment and plan (1) IVC thrombosis: Status: Acute Category: Medical Code(s): I82.220 - Acute embolism and thrombosis of inferior vena cava (2) Right ventricular thrombus: Status: Acute Category: Medical Code(s): I51.3 - Intracardiac thrombosis, not elsewhere classified (3) Iron deficiency anemia: Status: Acute Qualifiers: Iron deficiency anemia type: unspecified iron deficiency Qualified Code(s): D50.9 - Iron deficiency anemia, unspecified Category: Medical Code(s): D50.9 - Iron deficiency anemia, unspecified (4) Nausea & vomiting: Status: Acute Qualifiers: Vomiting type: unspecified Qualified Code(s): R11.2 - Nausea with vomiting, unspecified Category: Medical Code(s): R11.2 - Nausea with vomiting, unspecified (5) Diarrhea: Status: Acute Qualifiers: Diarrhea type: unspecified type Qualified Code(s): R19.7 - Diarrhea, unspecified Category: Medical Code(s): R19.7 - Diarrhea, unspecified Plan Plan: 1. The patient presented to the emergency department with nausea, vomiting and diarrhea. She had a CT of her abdomen which showed a thrombus starting at her right renal vein and extending of her IVC and into her right atrium and right ventricle. Cardiology was consulted. Dr. Hobbs, fruit vendor, at [facility] has been contacted and he has accepted the patient in transfer given the massive IVC thrombus extending from her right renal vein all the way to her right ventricle. She will likely undergo embolectomy once she is at [facility] when they have CT surgery as backup. 2. No heparin at this time as the patient is profoundly anemic. Dr. Hobbs wants the patient to be transferred first before initiating any thrombolytics. 3. Due to her anemia the patient will most likely receive blood products and then be heparinized but this will not be completed until she gets to [facility]. 4. Her blood pressure is well-controlled. 5. Her LDL goal is less than 100. 6. Upon further investigation with the patient she is adopted but her biological sister had 5 miscarriages and she had 1 miscarriage. This is highly concerning for a blood clotting disorder which will be worked up further at [facility]. 7. No further recommendations at this time from a cardiac standpoint. The patient is currently awaiting transfer to [facility].
--- NOTE | 2024-04-08 15:17 | PC.NURSE ---
DR SHARIF IS SPEAKING TO [facility]
--- NOTE | 2024-04-08 16:17 | PC.NURSE ---
1st unit of blood completed. Pt tolerated, no s/s of transfusion reaction
--- NOTE | 2024-04-08 16:28 | PC.NURSE ---
CALL MADE TO EMS FOR PT TRANSPORT TO ED
--- NOTE | 2024-04-08 16:50 | PC.NURSE ---
1640 report called to Viktor NETTLES at [facility]. Pt continues to tolerate blood administration at this time.
--- NOTE | 2024-04-08 16:51 | PC.NURSE ---
1645 care handoff report given to EMS crew transporting patient. Blood infusing at this time. Pt continues to tolerate blood administration at this time.
--- NOTE | 2024-04-08 17:14 | PC.NURSE ---
1656 2nd unit of blood completed. Pt tolerated transfusion. No s/s of transfusion reaction.
[2024-04-11 08:14] LABS: Factor V Activity 114 % (70-150); Protein S, Free 88 % (61-136); Protein S, Total 84 % (60-150); Protein S-Functional 31 % (63-140); von Willebrand Factor (vWF) Ag 223 % (50-200)
== END 2024-04-08 16:59 | disposition short-term general hospital (02) ==
PROVIDERS: Emergency Provider Emergency Medicine; PCP Family Medicine
DX: I82.220 Acute embolism and thrombosis of inferior vena cava (principal); I51.3 Intracardiac thrombosis, not elsewhere classified; D50.9 Iron deficiency anemia, unspecified; R10.9 Unspecified abdominal pain; M79.10 Myalgia, unspecified site; R11.2 Nausea with vomiting, unspecified; R19.7 Diarrhea, unspecified; R53.81 Other malaise
CPT/HCPCS: 36430; 71275; 74174; 80053; 81001; 81241; 83540; 83550; 83605; 83735; 84702; 85014; 85018; 85025; 85220; 85245; 85305; 85306; 85610; 85730; 86850; 93005; 96361; 96374; 96375; 99291; J0131; J2405; J7120; P9016; Q9967

== ENCOUNTER 2024-07-31 09:50 | Observation (INO) | payer SELFPAY ==
[2024-07-31] VITALS (8 sets, daily range): BP systolic 99–144; BP diastolic 56–88; PULSE 78–116; RESP 18–28; TEMP 36.4–36.6; O2SAT 98–100; BMI 26.1; BMI 30.8
--- NOTE | 2024-07-31 10:00 | ECG_ITS ---
APPROVED REPORT Exam: Resting ECG HR:113 bpm ECG Measurements Heart Rate 113 AXES ID 146 P 51 QRSd 86 QRS 56 QT 321 T 76 QTc 388 Conclusion Sinus tachycardia with no acute ischemic change Electronically signed by : PRASHANTH SHARIF, 08/01/2024 07:10:18
[2024-07-31 10:18] LABS: Basophils # 0.1 K/mm3 (0-0.2); Basophils % 0.3 % (0.1-2.0); Hematocrit 41.6 % (37.0-47.0); Hemoglobin 14.5 g/dL (12.2-16.2); Lymphocytes # 1.2 K/mm3 (0.7-4.5); Lymphocytes % 4.7 % (10-50); Mean Corpuscular HGB Conc 34.9 g/dL (31.8-35.4); Mean Corpuscular Hemoglobin 28.7 pg (27.0-31.2); Mean Corpuscular Volume 82.4 fl (81-99); Mean Platelet Volume 9.8 fl (7.4-10.4); Monocytes # 1.2 K/mm3 (0.1-1.0); Monocytes % 4.5 % (1.7-9.3); Neutrophils # 23.5 K/mm3 (1.8-7.8); Nucleated Red Blood Cells # 0 10^3/uL; Nucleated Red Blood Cells % 0 %; Platelet Count 502 K/mm3 (142-424); Red Blood Count 5.05 M/mm3 (4.20-5.40); Red Cell Distribution Width 14.6 % (11.5-17.5); Red Cell Distribution Width-SD 43.8 fL; White Blood Count 26.1 K/mm3 (4.8-10.8)
[2024-07-31] MEDS: LACTATED RINGERS 1000ML 1,000 ML 999 ML IV ×2 (10:18→11:59)
[2024-07-31] MEDS: diphenhydrAMINE 50MG/ML VIAL 25 MG IV (10:18)
[2024-07-31] MEDS: METOCLOPRAMIDE HCL 10MG/2ML VIAL 10 MG IVP (10:19)
[2024-07-31 10:23] LABS: MANUAL DIFFERENTIAL MANUAL DIFFERENTIAL (MANUAL DIFF)
--- NOTE | 2024-07-31 10:24 | PC.NURSE ---
I rounded on the pt. I took her half a cup of ice with permission from . I gave her a pillow for comfort and dimmed the lights. no needs voiced at this time. call kim in reach.
[2024-07-31 10:27] LABS: Chloride 110 mmol/L (98-107); Sodium 144 mmol/L (136-145)
[2024-07-31 10:30] LABS: Alanine Aminotransferase 58 U/L (12-78); Albumin/Globulin Ratio 1.6 (1.1-1.8); Alkaline Phosphatase 144 U/L (38-126); Aspartate Amino Transferase 61 U/L (14-36); Bilirubin,Total 0.5 mg/dl (0.2-1.3); Blood Urea Nitrogen 9 mg/dl (7-17); Carbon Dioxide 16 mmol/L (22.0-30.0); Estimated Glomerular Filt Rate 98 ml/min (>60); GFR (African American) 118 ML/MIN (>60); Globulin 3.1 g/dL (1.3-3.2); Lipase 46 U/L (23-300); Total Protein,Serum 8.1 g/dl (6.3-8.2)
[2024-07-31 10:31] LABS: Calcium 9.7 mg/dl (8.4-10.2); Glucose 151 mg/dl (74-100)
[2024-07-31 10:38] LABS: Lactic Acid 5.1 mmol/L (0.7-2.1)
--- NOTE | 2024-07-31 10:41 | XR_ITS ---
FINAL REPORT CLINICAL HISTORY: sepsis, malaise COMPARISON: None FINDINGS: The heart size is normal. The mediastinum is normal. There is no focal infiltrate or edema. There are no pleural effusions. There is no pneumothorax. 30 degrees of thoracic scoliosis is noted convex to the right. IMPRESSION: No acute cardiopulmonary process Reviewed, Interpreted and Dictated by Ashok Smith MD Transcribed by Blank Lira Authenticated and . [facility]
[2024-07-31 10:44] LABS: Lymphocytes % 5 % (10-50); Monocytes % 4 % (2-9); Neutrophils % 91 % (42-76); Total Cells Counted 100
[2024-07-31 10:45] LABS: Platelet Estimate Slight Increase; RBC Morphology Normal
[2024-07-31 11:00] LABS: HCG,Quantitative < 2 mIU/ml (0-5.42)
[2024-07-31] MEDS: CEFEPIME HCL 2 GM in 0.9 % SODIUM CHLORIDE 100 ML IV (11:07)
[2024-07-31 11:30] LABS: HIV Combo NEGATIVE (Negative)
[2024-07-31 11:37] LABS: Microscopic, Urine URINE MICROSCOPIC (MICROSCOPIC)
[2024-07-31 11:38] LABS: Hepatitis C Ab Qual. W/ RFX NEGATIVE (Negative)
--- NOTE | 2024-07-31 11:42 | HMH.EDGENADL ---
Discharge Plan Disposition Patient Disposition: Admitted Chief Complaint: Shortness of Breath/Dyspnea Clinical Impressions Clinical Impression: Intractable nausea and vomiting, SIRS (systemic inflammatory response syndrome) Discharge ED Provider: Gregorio Orourke General Adult HPI General Chief complaint: Shortness of Breath/Dyspnea Stated complaint: vomiting, dehydration, heart surgery in april Time Seen by Provider: 07/31/24 10:03 Mode of Arrival: Family Vehicle Source of Information: Patient and Significant Other Description of Symptoms (Recalled from ER Triage Doc. by RN): Pt c/o persistant nausea, vomiting, chills, and SOA that began suddenly at 0600. States she feels she may be dehydrated. She has been eating and drinking well prior to this event today. She also reports upper abd pain d/t the vomiting. She had recent heart sugergy (Apr 2024) and is on Eliquis d/t clots. She does report to smoking marijuana daily, most recent was yesterday. She also reports approx 4 shots of [place] yesterday as well. History of Present Illness HPI narrative: Please note that above description of symptoms, in this electronic medical record under categorization of recalled from ER triage doctor by RN are reflective of an initial nursing assessment, however, is not reflective of my full history and physical exam that was personally taken and clarified. Consequentially, this preceding description of symptoms, which may include the patient's categorized chief complaint in the EMR, do not reflect my personal clinical impression, and the ultimate description of history of present illness and patient stated complaints should be deferred to this section of the note. Unless stated otherwise or congruent with this section of the note, additional signs, symptoms, or incongruence should be interpreted as inaccurate with my clinical impression. Related Data Home Medications ?Medication ?Instructions ?Recorded ?Confirmed apixaban 5 mg tablet (Eliquis) 5 mg PO BID 07/31/24 07/31/24 ferrous sulfate 324 mg (65 mg 324 mg PO DAILY 07/31/24 07/31/24 iron) tablet,delayed release hydroxyzine HCl 25 mg tablet 25 mg PO TIDP PRN Anxiety 07/31/24 07/31/24 methocarbamol 500 mg tablet 1,000 mg PO TIDP PRN Pain 07/31/24 07/31/24 Allergies Allergy/AdvReac Type Severity Reaction Status Date / Time Penicillins Allergy Intermediate Verified 04/04/19 22:24 PFSH PFSH Disclaimer: The information contained in this section may have been updated after the patient was seen, as this information can be updated by other users. Medical History (Updated 07/31/24 @ 12:52 by Gregorio Orourke MD) IVC thrombosis Right ventricular thrombus Iron deficiency anemia Diarrhea Nausea & vomiting Social History Smoking Status: Former smoker alcohol intake: never current occupational status: employed Travel in the last 8 weeks?: None Have you lived/traveled outside US in past 30 days?: No Contact w/someone who lives/traveled outside US past 30 days?: No Exposure to someone with infectious disease in past 14 days?: No Do you have a fever (greater than 100.4 F or 38 C)?: No Have you tested positive for COVID-19?: No Exposed to someone with COVID-19 in past 14 days?: No Do you have a sore throat?: No Do you have a cough?: No Do you have any weakness?: No Do you have any diarrhea?: No Are you experiencing any unusual bleeding?: No Do you have any muscle aches/pain?: No Do you have any abdominal pain?: No Are you experiencing loss of taste or smell?: No Other Medical History Have you received the Flu Vaccine for this season: No Have you received the Pneumonia Vaccine: No ROS Obtained: Yes All systems reviewed & no additional complaints except as documented Physical Exam General General appearance: alert and anxious Head Head exam: atraumatic and normocephalic Eye Eye exam: Present normal appearance, PERRL and EOMI Neck Neck exam: Present normal inspection, full ROM and trachea midline Respiratory Respiratory exam: Present normal lung sounds bilaterally; Absent respiratory distress, wheezes, stridor, accessory muscle use or prolonged expiratory phase Cardiovascular Cardiovascular exam: Present normal rhythm, tachycardia and other (Pulses equal symmetric in upper and lower extremities) Abdominal Exam Abdominal exam: Present soft; Absent distention, tenderness, guarding, rebound, rigidity, Green's sign, tenderness at McBurney's Point or pulsatile mass Extremities Exam Extremities exam: Absent edema Neurological Exam Neurological exam: Present alert, oriented X3 and CN II-XII intact; Absent motor sensory deficit Skin Skin exam: Present warm and dry; Absent diaphoresis or erythema Medical Decision Making Medical Records Medical records reviewed: Yes I reviewed the patient's medical records. Screening: Per USPSTF and CDC recommendations, given the prevalence of disease in our region, it is our hospital?s policy to screen for HIV and viral Hepatitis for all patients aged 18 and over and those with ongoing risk factors. Stan Inquiry Pt receiving controlled substance: No Stan was queried for this patient: No Vital Signs: 07/31/24 10:05 07/31/24 10:10 07/31/24 11:31 Temperature 97.6 F Temperature Source Oral Pulse Rate 104 H 104 H Pulse Rate [Right] 116 H Respiratory Rate 28 H 20 Blood Pressure 128/88 139/88 Blood Pressure [Right Arm] 124/88 Blood Pressure Mean 100 Blood Pressure Mean [Right Arm] 100 Blood Pressure Source [Right Arm] Automatic Cuff 02 Sat by Pulse Oximetry 100 100 Oxygen Delivery Method Room Air Room Air Lab Data Lab Results 07/31/24 10:08: WBC 26.1 H*, RBC 5.05, Hgb 14.5, Hct 41.6, MCV 82.4, MCH 28.7, MCHC 34.9, RDW 14.6, Plt Count 502 H, MPV 9.8, Neut % (Auto) 90.0 H, Lymph % (Auto) 4.7 L, [place] % (Auto) 4.5, Eos % (Auto) 0.0 L, Baso % (Auto) 0.3, Neut # (Auto) 23.5 H, Lymph # (Auto) 1.2, [place] # (Auto) 1.2 H, Eos # (Auto) 0.0, Baso # (Auto) 0.1, Total Counted 100, Neutrophils % (Manual) 91 H, Lymphocytes % (Manual) 5 L, Monocytes % (Manual) 4, Platelet Estimate Slight increase, RBC Morphology Normal, Sodium 144, Potassium 4.0, Chloride 110 H, Carbon Dioxide 16 L, Anion Gap 22.0 H, BUN 9, Creatinine 0.70, Estimated GFR 98, Est GFR ( Amer) 118, Glucose 151 H, Lactate 5.1 H, Calcium 9.7, Total Bilirubin 0.5, AST 61 H, ALT 58, Alkaline Phosphatase 144 H, Total Protein 8.1, Albumin 5.0, Globulin 3.1, Albumin/Globulin Ratio 1.6, Lipase 46, HCG, Quant < 2, HCV Ab KAIN w/Rflx PCR Qn Negative, HIV Ag/Ab Combo Qual Negative 07/31/24 11:30: Urine Color Yellow, Urine Appearance Sl cloudy, Urine pH 8.0, Ur Specific [place] 1.020, Urine Protein 1+ A, Urine Glucose (UA) Negative, Urine Ketones 1+, Urine Blood 3+ A, Urine Nitrate Negative, Urine Bilirubin Negative, Urine Urobilinogen 0.2, Ur Leukocyte Esterase Negative, Urine RBC 50-100, Urine WBC Occasional, Ur Squamous Epith Cells Occasional, Urine Bacteria Trace, Urine Opiates Screen Negative, Urine Methadone Screen Negative, Ur Barbituates Screen Negative, Ur Phencyclidine Scrn Negative, Ur Amphetamines Screen Negative, U Benzodiazepines Scrn Negative, Urine Cocaine Screen Negative, U Marijuana (THC) Screen Positive H 07/31/24 10:08 07/31/24 10:08 Orders (Tests/Meds): ED MEDICATIONS Generic Name Dose Route Start Last Admin Trade Name Freq PRN Reason Stop Dose Admin Miscellaneous 1 each 07/31/24 10:30 07/31/24 11:59 Vancomycin Consult Request NOTAPPLIC 08/30/24 10:29 Not Given CONSULT PHARMACY [facility] Miscellaneous 1 each 07/31/24 10:45 07/31/24 11:59 Vancomycin Consult Request NOTAPPLIC 08/30/24 10:44 Not Given CONSULT PHARMACY [facility] Discontinued Medications Generic Name Dose Route Start Last Admin Trade Name Freq PRN Reason Stop Dose Admin Diazepam 2.5 mg 07/31/24 12:44 Diazepam 10mg/2ml Syringe IV 07/31/24 12:45 ONCE ONE Diphenhydramine HCl 25 mg 07/31/24 10:09 07/31/24 10:18 Diphenhydramine 50mg/Ml Vial IV 07/31/24 10:10 25 mg ONCE ONE Administration Droperidol 2.5 mg 07/31/24 11:42 07/31/24 11:59 Droperidol 5mg/2ml Vial IV 07/31/24 11:43 2.5 mg ONCE ONE Administration Lactated Ringer's 1,000 mls @ 999 mls/hr 07/31/24 10:09 07/31/24 10:18 Lactated Ringer's 1000 Ml Bag IV 07/31/24 11:09 999 mls/hr .Q1H1M ONE Administration Cefepime HCl 2 gm/ Sodium 100 mls @ 200 mls/hr 07/31/24 10:24 07/31/24 11:07 Chloride IV 07/31/24 10:53 200 mls/hr ONCE ONE Administration Lactated Ringer's 1,000 mls @ 999 mls/hr 07/31/24 10:24 07/31/24 11:59 Lactated Ringer's 1000 Ml Bag IV 07/31/24 11:24 999 mls/hr .Q1H1M ONE Administration Vancomycin/PEG/[place]/Lysine/Water 1.25 gm in 250 mls @ 125 mls/hr 07/31/24 10:45 07/31/24 11:58 Vancomycin 1.25gm/250ml (Peg) Premix IV 07/31/24 12:44 125 mls/hr ONCE ONE Administration Metoclopramide HCl 10 mg 07/31/24 10:09 07/31/24 10:19 Metoclopramide Hcl 10mg/2ml Vial IVP 07/31/24 10:10 10 mg ONCE ONE Administration ORDERS Category Date Time Status CXR --portable [XR chest portable] Stat Exams 07/31/24 10:41 Taken CBC w/Auto Diff [Complete Blood Count Auto Diff] Stat Lab 07/31/24 10:08 Completed CMP [Comprehensive Metabolic Panel] Stat Lab 07/31/24 10:08 Completed HCG,Quantitative Stat Lab 07/31/24 10:08 Completed HIV Combo Stat Lab 07/31/24 10:08 Completed Hepatitis C Ab Qual. 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 She states that she started her period a couple of days ago. Started having epigastric burning, vomiting that was incessant this morning, 07/31. Nonbloody, nonbilious, last bowel movement was this morning and normal for her with no blood or mucus. No fevers, chills, systemic signs or symptoms or urinary symptoms. Has not been able to tolerate any p.o. intake today. History was obtained via conversation with patient. On arrival, patient hemodynamically stable, alert, oriented x4, appropriate, GCS 15, moving all extremities spontaneously, pupils equal and reactive to light. Full physical exam performed and significant for anxious, uncomfortable appearing female no acute distress. Abdomen is benign. No tenderness, rebound, rigidity, guarding, distention, outward signs of abnormality and no tenderness is elicited on my exam. McBurney's point and Green sign is negative. Differential includes PUD, gastritis, enteritis, gastroenteritis, pancreatitis, SBO, colitis, diverticulitis, nephrolithiasis, UTI, , cholecystitis, choledocholithiasis, appendicitis, hepatitis, torsion, aortic pathology, mesenteric ischemia among others. Patient placed on continuous cardiac monitoring and continuous pulse ox with initial blood pressure 128/88, heart rate 104, saturation 100% on room air breathing about 30 times per minute. Independent interpretation of EKG shows sinus tachycardia 113 bpm with no acute cardiac abnormalities. Normal axis, no acute ischemic change. Patient was given Reglan and fluids for symptomatic management and correction of underlying abnormalities. Workup independently interpreted and significant for leukocytosis 26.1 with reactive thrombocytosis, elevated relative neutrophils and monocytes. Patient's chemistry with anion gap of 22, glucose of 151. Lactate 5.1 with mildly elevated AST at 61, normal ALT, mildly elevated alkaline phosphatase 144 with normal bilirubin. Lipase negative, negative, urinalysis without concern for UTI, but she does have ketones and blood, also on her period. Reevaluation, patient still vomiting, given 2.5 mg of droperidol IV. On independent interpretation of imaging, no acute cardiopulmonary species on chest x-ray. No evidence of pneumothorax, free air, or any other abnormality. See radiology read for full review of final results. CT scan of the abdomen pelvis was considered, but on repeat evaluation when patient is not vomiting or retching, much more comfortable, has absolutely no abdominal pain. On reevaluation, patient still having hard time tolerating p.o. intake. 2.5 mg IV Valium was administered. Tissue perfusion reassessment performed within 3 hours, patient mentating, following commands, good capillary refill and hemodynamically stable. Hospital medicine was contacted and case was discussed at length for SIRS, potentially bacteremia/sepsis, and inability to tolerate p.o. intake and intractable nausea and vomiting. Given patient presentation, workup, history, this most likely represents THC hyperemesis and SIRS criteria, severe dehydration and inability to tolerate p.o. intake. [place] disclaimer Much of this encounter note is an electronic calliope player spoken language to printed text. Electronic calliope player of the spoken language may permit errors. Although I have reviewed the note, some errors may still exist. Critical Care Critical Care Time Critical Care Time: No
[2024-07-31 11:44] LABS: Appearance,Urine SL CLOUDY (Clear); Bilirubin,Urine Negative (Negative); Blood, Urine 3+ (Negative); Color,Urine YELLOW (Yellow); Glucose,Urine (UA) Negative (Negative); Ketones,Urine 1+ (Negative); Leukocyte Esterase,Urine Negative (Negative); Nitrate,Urine Negative (Negative); Protein,Urine 1+ (Negative); Urobilinogen,Urine 0.2 EU/dl (0.2)
[2024-07-31 11:51] LABS: RBC,Urine 50-100 #/hpf (0-3); Squamous Epithelial Cell,Urine Occasional #/hpf (0-5); WBC,Urine Occasional #/hpf (0-3)
[2024-07-31 11:52] LABS: Bacteria,Urine Trace /lpf
[2024-07-31 11:57] LABS: Barbiturates Screen,Urine Negative ng/ml (<200); Benzodiazepines Screen,Urine Negative ng/ml (<200)
[2024-07-31 11:58] LABS: Amphetamine/Metha Screen,Urine Negative ng/ml (<1000)
[2024-07-31] MEDS: VANCOMYCIN/WATER FOR INJ (PEG) 1.25 GM/250 ML PIGGYBACK IV (11:58)
[2024-07-31 11:59] LABS: Cocaine Screen,Urine Negative ng/ml (<300); Methadone Screen,Urine Negative ng/ml (<300)
[2024-07-31] MEDS: droPERidol 5MG/2ML VIAL 2.5 MG IV (11:59)
[2024-07-31 12:01] LABS: Opiate Screen,Urine Negative ng/ml (<300); Phencyclidine Screen,Urine Negative ng/ml (<25)
--- NOTE | 2024-07-31 12:01 | PC.NURSE ---
I rounded on the pt. no new complaints. pt states she is feeling slightly less nauseated. I took her a warm blanket for comfort. call kim in reach.
[2024-07-31 12:08] LABS: Cannabinoid Screen,Urine Positive ng/ml (<50)
--- NOTE | 2024-07-31 12:35 | PC.NURSE ---
I notified of the need for a bed to admit.
--- NOTE | 2024-07-31 12:53 | P.HP_ITS ---
History of Present Illness *Admission Date: 07/31/24 *Reason for visit:: nausea and vomiting *History of present illness: Ms. Todd is a 33-year-old female with recent history of thrombosis necessitating sternotomy and thrombectomy. Is currently on blood thinners. States she came to the ER because of persistent nausea, vomiting, chills and some shortness of breath. Symptoms began this morning. Denies any chest pain, blood in vomit or stool. No diarrhea. Afebrile in the ER. Found to be tachycardic with elevated white count of 26. Imaging of abdomen relatively unremarkable. Stable on room air. Medicine consulted because of leukocytosis and SIRS criteria along with significant nausea and vomiting. On arrival to the floor, feeling somewhat better after receiving droperidol. Would like to try some p.o. liquids. Also reports smoking marijuana daily. Denies any episodes previously of vomiting with smoking. Drinks occasionally, most recently 4 shots of fireball yesterday. Otherwise at her baseline level of function [facility] Disclaimer: The information contained in this section may have been updated after the patient was seen, as this information can be updated by other users. Medical History IVC thrombosis Right ventricular thrombus Iron deficiency anemia Diarrhea Nausea & vomiting Social History Smoking Status: Former smoker alcohol intake: current current occupational status: employed Travel in the last 8 weeks?: None Have you lived/traveled outside US in past 30 days?: No Contact w/someone who lives/traveled outside US past 30 days?: No Exposure to someone with infectious disease in past 14 days?: No Do you have a fever (greater than 100.4 F or 38 C)?: No Have you tested positive for COVID-19?: No Exposed to someone with COVID-19 in past 14 days?: No Do you have a sore throat?: No Do you have a cough?: No Do you have any weakness?: No Are you experiencing any nausea/vomitting?: Yes Do you have any diarrhea?: No Are you experiencing any unusual bleeding?: No Do you have any muscle aches/pain?: No Do you have any abdominal pain?: No Are you experiencing loss of taste or smell?: No Other Medical History Have you received the Flu Vaccine for this season: No Have you received the Pneumonia Vaccine: No Review of Systems Review of Systems Review of systems (narrative): 14 point review of systems performed, pertinent positives and negatives as per [facility] Meds Home Medications and Allergies Home Medications ?Medication ?Instructions ?Recorded ?Confirmed ?Type apixaban 5 mg tablet (Eliquis) 5 mg PO BID 07/31/24 07/31/24 History ferrous sulfate 324 mg (65 mg 324 mg PO DAILY 07/31/24 07/31/24 History iron) tablet,delayed release hydroxyzine HCl 25 mg tablet 25 mg PO TIDP PRN Anxiety 07/31/24 07/31/24 History methocarbamol 500 mg tablet 1,000 mg PO TIDP PRN Mild Pain 07/31/24 07/31/24 History (Scale Score 1-4) New Prescriptions to Start Prescriptions: Allergies Allergy/AdvReac Type Severity Reaction Status Date / Time Penicillins Allergy Intermediate Verified 04/04/19 22:24 Exam Data for Last 24 hours Vital signs and Labs for Last 24 Hours: Temp Pulse Resp BP Pulse Ox O2 Del Method 97.6 F 104 H 28 H 108/64 L 100 Room Air 07/31/24 10:10 07/31/24 11:31 07/31/24 12:31 07/31/24 12:31 07/31/24 11:31 07/31/24 11:31 Laboratory Results - last 24 hr 07/31/24 10:08: WBC 26.1 H*, RBC 5.05, Hgb 14.5, Hct 41.6, MCV 82.4, MCH 28.7, MCHC 34.9, RDW 14.6, Plt Count 502 H, MPV 9.8, Neut % (Auto) 90.0 H, Lymph % (Auto) 4.7 L, [place] % (Auto) 4.5, Eos % (Auto) 0.0 L, Baso % (Auto) 0.3, Neut # (Auto) 23.5 H, Lymph # (Auto) 1.2, [place] # (Auto) 1.2 H, Eos # (Auto) 0.0, Baso # (Auto) 0.1, Total Counted 100, Neutrophils % (Manual) 91 H, Lymphocytes % (Manual) 5 L, Monocytes % (Manual) 4, Platelet Estimate Slight increase, RBC Morphology Normal, Sodium 144, Potassium 4.0, Chloride 110 H, Carbon Dioxide 16 L, Anion Gap 22.0 H, BUN 9, Creatinine 0.70, Estimated GFR 98, Est GFR ( Amer) 118, Glucose 151 H, Lactate 5.1 H, Calcium 9.7, Total Bilirubin 0.5, AST 61 H, ALT 58, Alkaline Phosphatase 144 H, Total Protein 8.1, Albumin 5.0, Globulin 3.1, Albumin/Globulin Ratio 1.6, Lipase 46, HCG, Quant < 2, HCV Ab KAIN w/Rflx PCR Qn Negative, HIV Ag/Ab Combo Qual Negative 07/31/24 11:30: Urine Color Yellow, Urine Appearance Sl cloudy, Urine pH 8.0, Ur Specific [place] 1.020, Urine Protein 1+ A, Urine Glucose (UA) Negative, Urine Ketones 1+, Urine Blood 3+ A, Urine Nitrate Negative, Urine Bilirubin Negative, Urine Urobilinogen 0.2, Ur Leukocyte Esterase Negative, Urine RBC 50-100, Urine WBC Occasional, Ur Squamous Epith Cells Occasional, Urine Bacteria Trace, Urine Opiates Screen Negative, Urine Methadone Screen Negative, Ur Barbituates Screen Negative, Ur Phencyclidine Scrn Negative, Ur Amphetamines Screen Negative, U Benzodiazepines Scrn Negative, Urine Cocaine Screen Negative, U Marijuana (THC) Screen Positive H I & O for Last 24 hours: Intake & Output 07/28/24 07/29/24 07/30/24 07/31/24 23:59 23:59 23:59 23:59 Weight 65.771 kg Constitutional Constitutional: no acute distress, obese and cooperative *Routine HEENT Exam Head: Present normocephalic Eye: Present EOMI and PERRL ENT: Present mucous membranes moist *Routine Neck Exam Neck: Present supple; Absent lymphadenopathy *Routine Respiratory Exam Respiratory: Present CTA bilaterally *Routine Cardiovascular Exam Cardiovascular: Present RRR *Routine Abdominal Exam Abdominal: Present soft, normoactive bowel sounds and tenderness (Nonfocal, mild); Absent distended or rebound *Routine Rectal Exam Rectal:: deferred *Routine Genitalia Exam Genitalia:: deferred *Routine Extremities Exam Extremities: Absent cyanosis, clubbing or edema *Routine Skin Exam Skin: Present warm; Absent rash *Routine Neurological Exam Neurological: Present alert, oriented X3 and moving all extremities; Absent altered mental status Assessment and Plan *Assessment and plan (1) SIRS (systemic inflammatory response syndrome): Status: Acute Category: Medical Code(s): R65.10 - Systemic inflammatory response syndrome (SIRS) of non-infectious origin without acute organ dysfunction (2) Intractable nausea and vomiting: Status: Acute Category: Medical Code(s): R11.2 - Nausea with vomiting, unspecified (3) IVC thrombosis: Status: Acute Category: Medical Code(s): I82.220 - Acute embolism and thrombosis of inferior vena cava Plan 33-year-old female admitted for intractable nausea and vomiting, workup positive for SIRS criteria with elevated leukocytosis of 26 and tachycardia. Suspect possible gastroenteritis. Discussed case with ER physician, request admission for further management due to intolerance of p.o. intake and SIRS criteria. I agreed to admit for further care. Problems addressed as follows: Intractable nausea and vomiting SIRS - White count elevated at 26, liver enzymes normal with bili 0.5, ALT and AST 61 and 58 respectively, alk phos 144. Lactate elevated 5.1. Suspect secondary to nausea and vomiting, cannot rule out infection. Received antibiotics in the ER with cefepime and Vanco. Will continue levofloxacin 7 or 50 mg daily pending culture results. - No indication to continue vancomycin at this time. - Status post 2 L LR in the ED with good improvement. Will advance diet to full liquids. Continue pantoprazole 40 mg nightly per home regimen. Continue Zofran 4 mg IV every 6 hours as needed for nausea and vomiting - Repeat CBC, CMP, magnesium ordered for the morning. - Electrolytes stable with sodium 144, BUN 9, creatinine 0.7. Potassium 4.0 and magnesium 2.2 UDS positive for THC, urine without concern for UTI. Chest x-ray per my review with no consolidation or airspace disease History of IVC thrombus: Continue Eliquis 5 mg twice daily Obesity complicates all aspects of her care Full code Eliquis Full liquid diet
--- NOTE | 2024-07-31 12:53 | HMH.PHAINT1 ---
Pharmacy Intervention Comments: MEDICATION RECONCILIATION COMPLETED ON PATIENT USING EXTERNAL FILL HISTORY FROM PHARMACY. -ETHAN MANNING, ALISAD
[2024-07-31] MEDS: diazePAM 10MG/2ML SYRINGE 2.5 MG IV (13:10)
[2024-07-31 14:26] LABS: Reflex Lactic Add Lactic Reflex
[2024-07-31 15:10] LABS: Lactic Acid Follow Up (RFLX 1) 1.7 mmol/L (0.7-2.1)
[2024-07-31] MEDS: LEVOFLOXACIN/D5W 750 MG/150 ML 750 MG/150 ML PIGGYBACK 100 MG IV (15:43)
--- NOTE | 2024-07-31 16:40 | PC.NURSE ---
Pt is A&Ox4. Vital signs stable tolerating room air. IV abx infusing per MAR. No complaints of nausea or SOA since arriving to the floor today. Pt is on a full liquid diet at this time. Pt is lying comfortably supine in bed with no further needs voiced at this time. Call light within reach.
--- NOTE | 2024-07-31 18:02 | P.DS_ITS ---
General Admission date:: 07/31/24 Discharge date: 07/31/24 HPI HPI HPI: Ms. Todd is a 33-year-old female with recent history of thrombosis necessitating sternotomy and thrombectomy. Is currently on blood thinners. States she came to the ER because of persistent nausea, vomiting, chills and some shortness of breath. Symptoms began this morning. Denies any chest pain, blood in vomit or stool. No diarrhea. Afebrile in the ER. Found to be tachycardic with elevated white count of 26. Imaging of abdomen relatively unremarkable. Stable on room air. Medicine consulted because of leukocytosis and SIRS criteria along with significant nausea and vomiting. On arrival to the floor, feeling somewhat better after receiving droperidol. Would like to try some p.o. liquids. Also reports smoking marijuana daily. Denies any episodes previously of vomiting with smoking. Drinks occasionally, most recently 4 shots of fireball yesterday. Otherwise at her baseline level of function Hospital Course Hospital Course Hospital Course: 33-year-old female admitted for intractable nausea and vomiting, workup positive for SIRS criteria with elevated leukocytosis of 26 and tachycardia. Suspect possible gastroenteritis. Discussed case with ER physician, request admission for further management due to intolerance of p.o. intake and SIRS criteria. I agreed to admit for further care. After being on the floor for about 5 hours, patient's feeling significantly better. Tolerating p.o. intake. Ate regular me al without any nausea or abdominal pain. Given her improvement in symptoms, she is requesting to go home. Extensive discussion about risks and benefits of discharging so quickly, patient states understanding. Will discharge home with labs ordered for the next 24 hours to monitor white count. Hemodynamically stable. Problems addressed as follows: Intractable nausea and vomiting SIRS - White count elevated at 26, liver enzymes normal with bili 0.5, ALT and AST 61 and 58 respectively, alk phos 144. Lactate elevated 5.1. Suspect secondary to nausea and vomiting, cannot rule out infection. Received antibiotics in the ER with cefepime and Vanco. Initiated on levofloxacin, dose administered after arriving to the floor. Patient felt much better after fluid resuscitation and antiemetics. Repeat lactate normalized. Extensive discussion about risks and benefits of going home. Patient requesting to leave due to feeling better. After shared decision making, I agreed that we would repeat labs in the next 24 hours as an outpatient. I do suspect her white count is D marginalization from vomiting and dehydration. Given normalization of her lactate, clinical improvement, otherwise benign findings on workup, will discharge home and hold on antibiotics at this time. Discharged with Zofran for nausea and vomiting. CBC and CMP ordered for the morning. UDS positive for THC, urine without concern for UTI. 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1, Total Counted 100, Neutrophils % (Manual) 91 H, Lymphocytes % (Manual) 5 L, Monocytes % (Manual) 4, Platelet Estimate Slight increase, RBC Morphology Normal, Sodium 144, Potassium 4.0, Chloride 110 H, Carbon Dioxide 16 L, Anion Gap 22.0 H, BUN 9, Creatinine 0.70, Estimated GFR 98, Est GFR ( Amer) 118, Glucose 151 H, Lactate 5.1 H, Calcium 9.7, Total Bilirubin 0.5, AST 61 H, ALT 58, Alkaline Phosphatase 144 H, Total Protein 8.1, Albumin 5.0, Globulin 3.1, Albumin/Globulin Ratio 1.6, Lipase 46, HCG, Quant < 2, HCV Ab KAIN w/Rflx PCR Qn Negative, HIV Ag/Ab Combo Qual Negative 07/31/24 11:30: Urine Color Yellow, Urine Appearance Sl cloudy, Urine pH 8.0, Ur Specific [place] 1.020, Urine Protein 1+ A, Urine Glucose (UA) Negative, Urine Ketones 1+, Urine Blood 3+ A, Urine Nitrate Negative, Urine Bilirubin Negative, Urine Urobilinogen 0.2, Ur Leukocyte Esterase Negative, Urine RBC 50-100, Urine WBC Occasional, Ur Squamous Epith Cells Occasional, Urine Bacteria Trace, Urine Opiates Screen Negative, Urine Methadone Screen Negative, Ur Barbituates Screen Negative, Ur Phencyclidine Scrn Negative, Ur Amphetamines Screen Negative, U Benzodiazepines Scrn Negative, Urine Cocaine Screen Negative, U Marijuana (THC) Screen Positive H 07/31/24 14:45: Lactate 1.7 I & O for Last 24 hours: Intake & Output 07/28/24 07/29/24 07/30/24 07/31/24 23:59 23:59 23:59 23:59 Intake Total 2500 / 2500 Output Total 0 / 0 Balance 2500 / 2500 Weight 76.521 kg Constitutional Constitutional: no acute distress and cooperative *Routine HEENT Exam Head: Present normocephalic Eye: Present EOMI and PERRL ENT: Present mucous membranes moist *Routine Neck Exam Neck: Present supple; Absent lymphadenopathy *Routine Respiratory Exam Respiratory: Present CTA bilaterally *Routine Cardiovascular Exam Cardiovascular: Present RRR *Routine Abdominal Exam Abdominal: Present soft and normoactive bowel sounds; Absent tenderness *Routine Rectal Exam Patient deferred: visual exam *Routine Exam Patient deferred: external exam *Routine Extremities Exam Extremities: Absent cyanosis, clubbing or edema *Routine Skin Exam Skin: Present warm; Absent rash *Routine Neurological Exam Neurological: Present alert, oriented X3 and moving all extremities; Absent altered mental status Results Data Completed and Pending Labs on day of discharge: Labs from last 24 hours 07/31/24 07/31/24 07/31/24 14:45 11:30 10:08 WBC 26.1 H* RBC 5.05 Hgb 14.5 Hct 41.6 MCV 82.4 MCH 28.7 MCHC 34.9 RDW 14.6 Plt Count 502 H MPV 9.8 Neut % (Auto) 90.0 H Lymph % (Auto) 4.7 L [place] % (Auto) 4.5 Eos % (Auto) 0.0 L Baso % (Auto) 0.3 Neut # (Auto) 23.5 H Lymph # (Auto) 1.2 [place] # (Auto) 1.2 H Eos # (Auto) 0.0 Baso # (Auto) 0.1 Total Counted 100 Neutrophils % (Manual) 91 H Lymphocytes % (Manual) 5 L Monocytes % (Manual) 4 Platelet Estimate Slight increase RBC Morphology Normal Sodium 144 Potassium 4.0 Chloride 110 H Carbon Dioxide 16 L Anion Gap 22.0 H BUN 9 Creatinine 0.70 Estimated GFR 98 Est GFR ( Amer) 118 Glucose 151 H Lactate 1.7 5.1 H Calcium 9.7 Total Bilirubin 0.5 AST 61 H ALT 58 Alkaline Phosphatase 144 H Total Protein 8.1 Albumin 5.0 Globulin 3.1 Albumin/Globulin Ratio 1.6 Lipase 46 HCG, Quant < 2 Urine Color Yellow Urine Appearance Sl cloudy Urine pH 8.0 Ur Specific [place] 1.020 Urine Protein 1+ A Urine Glucose (UA) Negative Urine Ketones 1+ Urine Blood 3+ A Urine Nitrate Negative Urine Bilirubin Negative Urine Urobilinogen 0.2 Ur Leukocyte Esterase Negative Urine RBC 50-100 Urine WBC Occasional Ur Squamous Epith Cells Occasional Urine Bacteria Trace Urine Opiates Screen Negative Urine Methadone Screen Negative Ur Barbituates Screen Negative Ur Phencyclidine Scrn Negative Ur Amphetamines Screen Negative U Benzodiazepines Scrn Negative Urine Cocaine Screen Negative U Marijuana (THC) Screen Positive H HCV Ab KAIN w/Rflx PCR Qn Negative HIV Ag/Ab Combo Qual Negative DS: Diagnosis Discharge Diagnosis (1) SIRS (systemic inflammatory response syndrome): Status: Acute Code(s): R65.10 - Systemic inflammatory response syndrome (SIRS) of non-infectious origin without acute organ dysfunction (2) Intractable nausea and vomiting: Status: Acute Code(s): R11.2 - Nausea with vomiting, unspecified (3) IVC thrombosis: Status: Acute Code(s): I82.220 - Acute embolism and thrombosis of inferior vena cava Meds Home Medications and Allergies Home Medications ?Medication ?Instructions ?Recorded ?Confirmed ?Type apixaban 5 mg tablet (Eliquis) 5 mg PO BID 07/31/24 07/31/24 History ferrous sulfate 324 mg (65 mg 324 mg PO DAILY 07/31/24 07/31/24 History iron) tablet,delayed release hydroxyzine HCl 25 mg tablet 25 mg PO TIDP PRN Anxiety 07/31/24 07/31/24 History methocarbamol 500 mg tablet 1,000 mg PO TIDP PRN Mild Pain 07/31/24 07/31/24 History (Scale Score 1-4) ondansetron 4 mg disintegrating 4 mg PO Q6H PRN nausea and 07/31/24 Rx tablet vomiting #20 tabs New Prescriptions to Start Prescriptions: ondansetron Blair Liu Allergies Allergy/AdvReac Type Severity Reaction Status Date / Time Penicillins Allergy Intermediate Verified 04/04/19 22:24 Discharge Plan Disposition Patient Disposition: Home, Self-Care Condition: Good Follow up Plan Follow up with: Thalia Dumont [Primary Care Provider] - Enter time for follow up (please call office for follow up appointment) Prescriptions/Medication Reconciliation: New ondansetron 4 mg tablet,disintegrating 4 mg PO Q6H PRN (Reason: nausea and vomiting) Qty: 20 0RF Continued methocarbamol 500 mg tablet 1,000 mg PO TIDP PRN (Reason: Mild Pain (Scale Score 1-4)) Patient Comments: TAKE 2 TABLETS BY MOUTH THREE TIMES DAILY hydroxyzine HCl 25 mg tablet 25 mg PO TIDP PRN (Reason: Anxiety) Patient Comments: TAKE 1 TABLET BY MOUTH THREE TIMES DAILY NEEDED FOR ANXIETY ferrous sulfate 324 mg (65 mg iron) tablet,delayed release (DR/EC) 324 mg PO DAILY Patient Comments: TAKE 1 TABLET BY MOUTH ONCE DAILY Eliquis 5 mg tablet 5 mg PO BID Patient Comments: TAKE 1 TABLET BY MOUTH TWICE DAILY Other Ambulatory Orders: Complete Blood Count Auto Diff (Routine) Timeframe: 1 Day Facility: [facility] - Location: Laboratory Ordered By: Blair Liu Comprehensive Metabolic Panel (Routine) Timeframe: 1 Day Facility: [facility] - Location: Laboratory Ordered By: Blair Liu Problem Reconciliation Problems Reviewed?: Yes Patient Discharge Instructions ACTIVITY: Continue current activity DIET: continue same diet and advance to your usual diet Patient Instructions: DI for Sepsis -- Adult, Nausea and Vomiting-Adult Print Language: [place] Providers Primary Care Provider: Thalia Dumont Admit Provider: Blair Liu Attending Provider: Blair Liu
--- NOTE | 2024-08-01 09:59 | SW/DCPLANNER ---
Spoke with patient on the phone. Patient stated that she is doing well. Patient stated that she was able to get her medicine picked up from [facility]. Patient stated that she is going to call and schedule an appointment with her primary care provider. Patient stated that she has no concerns or questions. Cris Fletcher
--- NOTE | 2024-08-01 10:08 | PEERSUPPORT ---
Peer Support Note Patient Information Patient Information: DOS: 08/01/2024 Ps spoke with pt post discharge. Pt stated she does not feel she needs treatment at this time, she is feeling better and hopeful to be able to maintain. Ps shared recovery community resources, and support groups for connection to recovery available. Pt is receptive and accepting of treatment list and referrals via email, including online AA meetings to be accessed 23/10. Ps sent email and provided contact information as a social support for recovery ongoing.
== END 2024-07-31 18:25 | disposition home or self-care (01) ==
LOC: ER 10:50 → 2ND 12:52
PROVIDERS: Admitting Provider Internal Medicine Adolescent Medicine; Emergency Provider Emergency Medicine; PCP Family Medicine; Visit Provider Internal Medicine Adolescent Medicine
DX: R11.2 Nausea with vomiting, unspecified (principal); R00.0 Tachycardia, unspecified; R65.10 Systemic inflammatory response syndrome (SIRS) of non-infectious origin without acute organ dysfunction; R79.89 Other specified abnormal findings of blood chemistry; D72.829 Elevated white blood cell count, unspecified; I82.220 Acute embolism and thrombosis of inferior vena cava; E86.0 Dehydration; D75.839 Thrombocytosis, unspecified; R06.02 Shortness of breath; E66.9 Obesity, unspecified; Z68.30 Body mass index [BMI] 30.0-30.9, adult; F41.9 Anxiety disorder, unspecified; Z86.718 Personal history of other venous thrombosis and embolism; F12.90 Cannabis use, unspecified, uncomplicated; Z87.891 Personal history of nicotine dependence; Z79.01 Long term (current) use of anticoagulants; Z98.890 Other specified postprocedural states; D50.9 Iron deficiency anemia, unspecified; Z79.899 Other long term (current) drug therapy; Z88.0 Allergy status to penicillin
CPT/HCPCS: 36415; 71045; 80053; 80307; 81001; 83605; 83690; 84702; 85007; 85025; 86803; 87040; 87389; 93005; 99285; G0378; J1200; J1790; J1956; J2765; J3360; J3372; J7120